=== PATIENT | female | born 1965 | race Caucasian/White ===

== ENCOUNTER 2019-06-11 13:26 | Emergency (ER) | payer OTHER ==
[2019-06-11] MEDS ORDERED: HYDROCODONE/APAP 7.5/325 MG TAB ONE (13:43)
--- NOTE | 2019-06-11 14:20 | RAD REPORT ---
EXAM DESCRIPTION: RAD - Knee Right 3 View - 06/11/2019 2:08 pm CLINICAL HISTORY: Right knee pain status post injury FINDINGS: No fracture or dislocation is seen.
--- NOTE | 2019-06-11 14:41 | RAD REPORT ---
EXAM DESCRIPTION: Kenny Stevenson Cont06/11/2019 2:27 pm CLINICAL HISTORY: Right knee pain status post injury COMPARISON: X-ray June 11, 2019 TECHNIQUE: Computed axial tomography of the right knee was obtained with coronal and sagittal recons truction. All CT scans are performed using dose optimization technique as appropriate and may include automated exposure control or mA/KV adjustment according to patient size. FINDINGS: No fracture or dislocation Minimal joint effusion Muscles appear normal size and density Mild soft tissue swelling anteriorly IMPRESSION: No fracture seen If patient has clinical symptoms to suggest a meniscal or ligamentous injury then MRI would be recomm ended
[2019-06-11] MEDS ORDERED: ONDANSETRON 4 MG/2 ML VIAL ONE (15:21)
[2019-06-11] MEDS ORDERED: MORPHINE 4 MG/ML SYR ONE (15:21)
--- NOTE | 2019-06-11 17:01 | RAD REPORT ---
EXAM DESCRIPTION: MRI - Knee Right Wo Cont - 06/11/2019 4:28 pm CLINICAL HISTORY: Knee pain, twisting injury, pain out of proportion to imaging findings COMPARISON: CT right knee same date, right knee plain films same date TECHNIQUE: Sagittal and axial PD and T2 fat sat sequences obtained. Coronal T2 fat sat and T1 sequen lyly also obtained. FINDINGS: Patella tendon and quadriceps tendon show no significant finding. Patella chondral edema a nd thinning in the lateral facet with cortical thinning and subcortical degenerative cystic change in the lateral facet. No full-thickness osteochondral defects seen. There is medial facet chondral imer a. Medial and lateral support structures are intact. Edema signal is present in the medial aspect of the Hoffa fat pad. Mild femoral chondral edema. No significant chondromalacia of the femoral condyles noted. No cortical disruption or full thickness osteochondral defect. The anterior cruciate, posterior cruciate trauma medial collateral and lateral collateral ligaments a re intact. Small joint effusion present. No intra-articular loose body. No tear of the lateral meniscus identified. Signal abnormality is present in the posterior horn media l meniscus without extension to superior or inferior articular surface. This could be intrasubstance tear or degenerative signal. No posterior capsular margin tear confirmed. No mass or abnormal fluid collection in the popliteal fossa. IMPRESSION: No occult fracture. No femur or tibia bone bruising. Mild femoral chondral edema changes are present without significant chondromalacia otherwise noted. Significant chondromalacia of the patella with thinning of the lateral facet chondral tissue, lateral facet cortical thinning and subcortical degenerative cystic change. No full thickness free osteochon dral defect. Medial facet chondral edema present. There is edema in the medial Hoffa fat pad at the i nferior margin of the patella. No ligament tear. Degenerative signal posterior horn medial meniscus without tear extending to an articular surface.
--- NOTE | 2019-06-11 17:32 | EDPHYS ---
Physician Documentation [facility] Name: Erika Ardon Age: 53 yrs Sex: Female : 1965 Arrival Date: 06/11/2019 Time: 13:28 Bed 19 Private MD: ED Physician Last Linton HPI: 06/11 16:55 This 53 yrs old Female presents to ER via Wheelchair with complaints of Knee kdr Pain. 16:55 The patient presents with decreased range of motion, pain, that is acute, tenderness. kdr The complaints affect the lateral aspect of right knee and right knee. Context: The problem was sustained at work, resulted from Soon after standing and then twisting she felt discomfort in her knee and then was not able to bear luz maria or straighten knee., the patient is able to ambulate. Historical: - Allergies: 13:36 PENICILLINS; sv - PMHx: 13:36 None; sv - PSHx: 13:36 None; sv - Immunization history:: Adult Immunizations Flu vaccine is not up to date. - Social history:: Smoking status: . - Ebola Screening: : Patient denies travel to an Ebola-affected area in the 21 days before illness onset. ROS: 17:07 Constitutional: Negative for fever, chills, and weight loss. kdr 17:07 MS/extremity: Positive for injury or acute deformity, decreased range of motion, pain, tenderness, of the lateral aspect of right knee and right knee. Exam: 17:06 Constitutional: This is a well developed, well nourished patient who is awake, alert, kdr and in no acute distress. Head/Face: Normocephalic, atraumatic. Eyes: Pupils equal round and reactive to light, extra-ocular motions intact. Lids and lashes normal. Conjunctiva and sclera are non-icteric and not injected. Cornea within normal limits. Periorbital areas with no swelling, redness, or edema. 17:06 Musculoskeletal/extremity: Extremities: grossly normal except: noted in the lateral aspect of right knee and right knee: decreased ROM, pain, tenderness, Minimal swelling, N/v intact distal to the knee. Vital Signs: 13:36 BP 135 / 74; Pulse 75; Resp 16; Temp 98.5; Pulse Ox 97% ; Weight 65.77 kg; Height 5 ft. sv 5 in. (165.10 cm); Pain 8/10; 14:34 BP 125 / 73; Pulse 67; Resp 17; Pulse Ox 99% on R/A; mh5 15:40 BP 120 / 80; Pulse 67; Resp 15; Pulse Ox 99% on R/A; mh5 16:35 BP 121 / 90; Pulse 61; Resp 15; Pulse Ox 98% on R/A; mh5 13:36 Body Mass Index 24.13 (65.77 kg, 165.10 cm) sv MDM: 17:31 Patient medically screened. kdr 17:34 Data reviewed: vital signs, nurses notes, lab test result(s), radiologic studies. kdr Counseling: I had a detailed discussion with the patient and/or guardian regarding: the historical points, exam findings, and any diagnostic results supporting the discharge/admit diagnosis, lab results, radiology results, the need for outpatient follow up. 06/11 13:44 Order name: Knee Right 3 View XRAY; Complete Time: 15:12 kdr 06/11 14:15 Order name: Knee Right Wo Cont; Complete Time: 15:12 EDMS 06/11 15:22 Order name: Knee Right Wo Cont; Complete Time: 17:07 EDMS 06/11 17:29 Order name: Minor wrap-joint: Right knee; Complete Time: 17:51 kdr 06/11 17:29 Order name: Crutches; Complete Time: 17:51 kdr Administered Medications: 13:50 Drug: [place] (7.5 mg-325 mg) 1 tabs Route: PO; em 15:03 Follow up: Response: No adverse reaction; Pain is decreased; RASS: Alert and Calm (0) em 15:41 Drug: Zofran 4 mg Route: IVP; Site: right antecubital; ss 16:30 Follow up: Response: No adverse reaction em 15:46 Not Given (Only [address] linton notified. ): morphine 4 mg IVP once; RASS on ss ADMIN: Combtv4, Very Agttd3, Agttd2, Rstlss1, AlertClm0, Drwsy-1, Lt Sdtn-2, Mod Sdtn-3, Dp Sdtn-4, UnArsble-5 15:46 Drug: morphine 2 mg Route: IVP; Site: right antecubital; ss 16:30 Follow up: Response: No adverse reaction; Pain is decreased; RASS: Alert and Calm (0) em 17:58 Drug: TORadol - Ketorolac 15 mg Route: IVP; Site: right antecubital; ss 18:09 Follow up: Response: No adverse reaction; Medication administered at discharge. ss 18:01 Drug: SOLU-Medrol 125 mg Route: IVP; Site: right antecubital; ss 18:08 Follow up: Response: No adverse reaction; Medication administered at discharge. Disposition: 06/11/19 17:31 Discharged to Home. Impression: Pain in right knee, Degenerative changes to right knee. - Condition is Stable. - Discharge Instructions: Musculoskeletal Pain, Knee Pain, [id number], Joint Pain, [id number], Heat Therapy. - Prescriptions for Ibuprofen 600 mg Oral Tablet - take 1 tablet by ORAL route every 6 hours As needed take with food; 15 tablet. Tylenol- Codeine #4 300-60 mg Oral Tablet - take 1 tablet by ORAL route every 6 hours As needed; 6 tablet. Medrol (Omari) 4 mg Oral Tablets, Dose Pack - take 1 tablet by ORAL route as directed - follow package instructions; 1 packet. - Medication Reconciliation Form, Thank You Letter, Prescription Opioid Use form. - Follow up: Private Physician; When: 2 - 3 days; Reason: If symptoms return, Further diagnostic work-up, Recheck today's complaints, Continuance of care, Re-evaluation by your physician. Follow up: Etienne Eddy MD; When: 2 - 3 days; Reason: If symptoms return, Further diagnostic work-up, Recheck today's complaints, Continuance of care, Re-evaluation by your physician. - Problem is new. - Symptoms have improved. Signatures: Dispatcher [employer] [facility] Erika Garland, RN RN Last Mendiola MD MD kdr Munoz, Edgar, MISSILE FACILITIES REPAIRER MISSILE FACILITIES REPAIRER Laila Blanco RN RN ss Wise, Tara, RN RN tw2 Corrections: (The following items were deleted from the chart) 14:14 14:03 CT RIGHT KNEE WO CONTRAST ordered. [facility] 18:11 17:31 06/11/2019 17:31 Discharged to Home. Impression: Pain in right knee; Degenerative em changes to right knee. Condition is Stable. Forms are Medication Reconciliation Form, Thank You Letter, Antibiotic Education, Prescription Opioid Use. Follow up: Private Physician; When: 2 - 3 days; Reason: If symptoms return, Further diagnostic work-up, Recheck today's complaints, Continuance of care, Re-evaluation by your physician. Follow up: Dr. Etienne Eddy; When: 2 - 3 days; Reason: If symptoms return, Further diagnostic work-up, Recheck today's complaints, Continuance of care, Re-evaluation by your physician. Problem is new. Symptoms have improved. kdr
--- NOTE | 2019-06-11 17:32 | ER ---
Nurse's Notes [facility] Name: Erika Ardon Age: 53 yrs Sex: Female : 1965 Arrival Date: 06/11/2019 Time: 13:28 Bed 19 Private MD: Diagnosis: Pain in right knee;Degenerative changes to right knee Presentation: 06/11 13:34 Risk Assessment: Do you want to hurt yourself or someone else? Patient reports no tw2 desire to harm self or others. Care prior to arrival: None. 13:34 Presenting complaint: Patient states: right knee pain after twisting wrong but has been sv having ongoing right knee problems. Transition of care: patient was not received from another setting of care. Onset of symptoms was June 11, 2019. Risk Assessment: Do you want to hurt yourself or someone else? Patient reports no desire to harm self or others. Initial Sepsis Screen: Does the patient meet any 2 criteria? No. Patient's initial sepsis screen is negative. Does the patient have a suspected source of infection? No. Patient's initial sepsis screen is negative. Care prior to arrival: None. 13:34 Method Of Arrival: Wheelchair sv 13:34 Acuity: MARITA 4 sv Historical: - Allergies: 13:36 PENICILLINS; sv - PMHx: 13:36 None; sv - PSHx: 13:36 None; sv - Immunization history:: Adult Immunizations Flu vaccine is not up to date. - Social history:: Smoking status: . - Ebola Screening: : Patient denies travel to an Ebola-affected area in the 21 days before illness onset. Screenin:34 Abuse screen: Denies threats or abuse. Nutritional screening: No deficits noted. tw2 Tuberculosis screening: No symptoms or risk factors identified. Fall Risk None identified. Assessment: 14:55 Reassessment: Patient appears in no apparent distress at this time. Patient and/or em family updated on plan of care and expected duration. Pain level reassessed. Patient is alert, oriented x 3, equal unlabored respirations, skin warm/dry/pink. reports pain is better, resting calmly with eyes closed. 15:30 General: Appears uncomfortable, Behavior is calm, cooperative. Neuro: Level of ss Consciousness is awake, alert, obeys commands, Oriented to person, place, time, situation. Cardiovascular:. Respiratory: Airway is patent Respiratory effort is even, unlabored, Respiratory pattern is regular, symmetrical. EENT: Oral mucosa is moist. Derm: Skin is intact, is healthy with good turgor, Skin is pink, warm \T\ dry. normal. Musculoskeletal: Swelling absent. 15:49 Reassessment: Pt to MRI VIA wheelchair at this time. ss 16:30 Reassessment: Patient appears in no apparent distress at this time. Patient and/or em family updated on plan of care and expected duration. Pain level reassessed. Patient is alert, oriented x 3, equal unlabored respirations, skin warm/dry/pink. Patient states feeling better. 17:30 Reassessment: Patient appears in no apparent distress at this time. Patient and/or em family updated on plan of care and expected duration. Pain level reassessed. Patient is alert, oriented x 3, equal unlabored respirations, skin warm/dry/pink. Patient states feeling better. Vital Signs: 13:36 BP 135 / 74; Pulse 75; Resp 16; Temp 98.5; Pulse Ox 97% ; Weight 65.77 kg; Height 5 ft. sv 5 in. (165.10 cm); Pain 8/10; 14:34 BP 125 / 73; Pulse 67; Resp 17; Pulse Ox 99% on R/A; mh5 15:40 BP 120 / 80; Pulse 67; Resp 15; Pulse Ox 99% on R/A; mh5 16:35 BP 121 / 90; Pulse 61; Resp 15; Pulse Ox 98% on R/A; mh5 13:36 Body Mass Index 24.13 (65.77 kg, 165.10 cm) sv ED Course: 13:28 Patient arrived in ED. mr 13:29 Last Linton MD is Attending Physician. kdr 13:34 Bed in low position. Call light in reach. tw2 13:34 Arm band placed on. tw2 13:35 Triage completed. sv 13:39 Gutierrez Isidro LVN is Primary Nurse. em 14:09 Knee Right 3 View XRAY In Process Unspecified. EDMS 14:27 Knee Right Wo Cont In Process Unspecified. EDMS 15:40 Inserted saline lock: 22 gauge in right antecubital area, using aseptic technique. ss 15:56 Knee Right Wo Cont In Process Unspecified. EDMS 17:30 Etienne Eddy MD is Referral Physician. kdr 17:50 Crutch training done. Minor wrap to right knee. [facility] 18:08 No provider procedures requiring assistance completed. IV discontinued, intact, em bleeding controlled, No redness/swelling at site. Pressure dressing applied. Administered Medications: 13:50 Drug: [place] (7.5 mg-325 mg) 1 tabs Route: PO; em 15:03 Follow up: Response: No adverse reaction; Pain is decreased; RASS: Alert and Calm (0) em 15:41 Drug: Zofran 4 mg Route: IVP; Site: right antecubital; ss 16:30 Follow up: Response: No adverse reaction em 15:46 Not Given (Only [address] linton notified. ): morphine 4 mg IVP once; RASS on ss ADMIN: Combtv4, Very Agttd3, Agttd2, Rstlss1, AlertClm0, Drwsy-1, Lt Sdtn-2, Mod Sdtn-3, Dp Sdtn-4, UnArsble-5 15:46 Drug: morphine 2 mg Route: IVP; Site: right antecubital; ss 16:30 Follow up: Response: No adverse reaction; Pain is decreased; RASS: Alert and Calm (0) em 17:58 Drug: TORadol - Ketorolac 15 mg Route: IVP; Site: right antecubital; ss 18:09 Follow up: Response: No adverse reaction; Medication administered at discharge. ss 18:01 Drug: SOLU-Medrol 125 mg Route: IVP; Site: right antecubital; ss 18:08 Follow up: Response: No adverse reaction; Medication administered at discharge. Outcome: 17:31 Discharge ordered by . kdr 18:09 Discharged to home with crutches, with family. em 18:09 Condition: good 18:09 Discharge instructions given to patient, family, Instructed on discharge instructions, follow up and referral plans. medication usage, crutch walking, Demonstrated understanding of instructions, follow-up care, medications, crutch walking, Prescriptions given X 3. 18:11 Patient left the ED. em Signatures: Dispatcher [employer] Erika Sharp RN RN sv Rittger, Kevin, MD MD kdr Rivera, Mary mr Munoz, Edgar, LVN CYCLE DIRECTOR Laila Blanco, RN RN ss Kiesha Vazquez, RN RN [address] [place] [id number]
[2019-06-11] MEDS ORDERED: METHYLPREDNISOLONE 125 MG INJ ONE (17:36)
[2019-06-11] MEDS ORDERED: KETOROLAC 30 MG/ML INJ ONE (17:37)
[2019-06-11 18:25] VITALS: TEMP 98.5
[2019-06-11 18:31] VITALS: BP 121/90; O2SAT 98
== END 2019-06-11 18:11 | disposition home or self-care (01) ==
LOC: ER 13:26
DX: M25.9 Joint disorder, unspecified (principal); Z88.0 Allergy status to penicillin
CPT/HCPCS: 73700; 73562; 73721; 96375; 96374; 99284; J2930; J2405

== ENCOUNTER 2020-12-26 06:41 | Day surgery (SDC) | payer BC ==
[2020-12-20 11:18] LABS: Absolute Lymphocytes (CBC) 1.7 K/uL (0.7-4.9); Basophils % 0.3 % (0-1.3); Hematocrit 37.6 % (36.0-45.0); Lymphocytes % 25.4 % (15.3-44.8); MPV 8.8 fL (7.6-11.3); RBC Red Blood Cell Count 4.78 M/uL (3.86-4.86)
[2020-12-20 11:32] LABS: Urine Appearance CLEAR (Clear); Urine Bilirubin NEGATIVE (Negative); Urine Blood NEGATIVE (Negative); Urine Color YELLOW (Yellow); Urine Glucose NEGATIVE (Negative); Urine Protein NEGATIVE (Negative); Urine Specific Gravity 1.015 (1.005-1.030); Urine Urobilinogen 0.2 mg/dL (0.2-1.0)
[2020-12-20 11:34] LABS: Urine Microscopic Reflex ORDER UMIC
[2020-12-20 12:11] LABS: Urine Bacteria 20-50 /HPF (<20); Urine RBC NONE SEEN /HPF (NONE SEEN)
[2020-12-26] MEDS ORDERED: Ringers Lactate 1,000 ML IV ONE (07:14)
[2020-12-26] MEDS ORDERED: CEFAZOLIN/SWI 2gm 2 GM/20 ML SYR ONE (07:25)
[2020-12-26] MEDS ORDERED: SCOPOLAMINE HYDROBROMIDE PATCH TD ONE (07:25)
[2020-12-26] MEDS ORDERED: ROCURONIUM 50 MG/5 ML VIAL IV ONE (07:33)
[2020-12-26] MEDS ORDERED: FENTANYL CITR 250 MCG/5 ML ONE (07:33)
[2020-12-26] MEDS ORDERED: propofoL 200 MG/20 ML VIAL IV ONE (07:33)
[2020-12-26] MEDS ORDERED: KETAMINE HCL 500 MG/5 ML VIAL ONE (07:33)
[2020-12-26] MEDS ORDERED: ONDANSETRON 4 MG/2 ML VIAL ONE (07:33)
[2020-12-26] MEDS ORDERED: LIDOCAINE 2% MPF 5 ML VIAL ONE (07:33)
[2020-12-26] MEDS ORDERED: dexAMETHasone 10 MG/ML VIAL ONE (07:33)
[2020-12-26] MEDS ORDERED: MIDAZOLAM HCL 2 MG/2 ML INJ ONE (07:33)
[2020-12-26] MEDS ORDERED: NS 0.9% VIAL 10 ML ONE (07:34)
[2020-12-26] MEDS: BUPIVACAINE 0.25% PF 30 ML VIAL ONE ×2 (07:46→08:15)
[2020-12-26] MEDS: Ringers Lactate 1,000 ML IV ONE ×2 (08:49→09:10)
[2020-12-26] MEDS ORDERED: KETOROLAC 30 MG/ML INJ ONE (10:36)
[2020-12-26] MEDS ORDERED: MORPHINE 10 MG/ML VIAL ONE (10:58)
[2020-12-26] MEDS: HYDROMORPHONE HCL 1 MG/ML INJ ONE ×2 (11:56→12:04)
[2020-12-26] MEDS ORDERED: HYDROCODONE/APAP 5/325 MG TAB ONE (13:07)
[2020-12-26 14:09] VITALS: BP 131/63; TEMP 97.4; O2SAT 100
--- NOTE | 2020-12-26 20:47 | OP ---
Date of Procedure: 12/26/2020 Surgeon: Janell Mcbride MD Educational Psychology Teacher: Marleen Houser. Preoperative Diagnoses: Abnormal uterine bleeding from leiomyomata and (menorrhagia), right lower qu adrant pain. Postoperative Diagnoses: Abnormal uterine bleeding from leiomyomata and (menorrhagia), right lower q uadrant pain and endometriosis. Procedures Performed: 1.Total laparoscopic hysterectomy with bilateral salpingo-oophorectomy. 2.Vaginal morcellation. 3.Endometriosis excision. 4.Left ureterolysis and cystoscopy. Anesthesia: General endotracheal. Ebl: 50. Specimens: Uterus, bilateral tubes and ovaries, all attached to the uterine specimen. No separate p ieces of the uterus present. Findings: The ovaries and tubes were unremarkable, fibroid largest in the posterior wall, intramural and subserosal. Other small several leiomyomata. Endometriosis in the distal right uterosacral imm ediately lateral to the insertion at the top of the vaginal apex and on the left side, left lateral w all all the way from below the level of the infundibulopelvic ligament extending on the posterior dexter f of the peritoneum all the way to the left uterosacral. The ureter had to be and dissecte d laterally to protect it and all the endometriosis was excised and the specimen was handed out for p athology. Closure of the vaginal cuff was performed with 0 Vicryl, 2 angled sutures and 3 figures-of -eight in the middle. Four ports were placed, two 1 cm ports and two 5 mm ports. Complications: None. Drains: None. Condition: The patient's condition stable on cystoscopy. Both ureteric orifices were well visualize d, and there were strong jets of urine from both of them. Other Specimens: Endometriosis of the left lateral wall. The right distal uterosacral endo was incl uded with the uterine specimen. Indications: The patient is a 55-year-old female known to the practice for many years, progressively having increasing bleeding, known to have leiomyomata. Endometrial sampling 6 months ago showed no atypia or malignancy. She did have right lower quadrant pain and her pain and dysmenorrhea also were getting worse with time progressively. She does have perimenopausal symptoms. Despite this, the bl eeding and the pain have become intolerable. Discussed about different options of conservative treat ment including an IUD, endometrial ablation with endometriosis excision laparoscopic. The patient wa nted to wait and after observing for many years, she decided to proceed with a hysterectomy. I conse nted her for a salpingo-oophorectomy as well and endometriosis that it would be done. Aft er signing the appropriate consent and explaining the risks including bleeding, infection, injury to the bowel, bladder, and ureters. She was reconsented here this morning and she was taken back to the OR. Her was present by her side, and the questions and answers were done to their satisfact ion including explanation of recovery and expected postoperative recovery related events. Procedure In Detail: After she was taken back to OR, placed in supine fashion on operative table, ge neral anesthesia was given. Placed in dorsal lithotomy position. 2 g of Ancef were given. SCDs wer e placed. Abdomen, vulva, vagina, and perineum were prepped and draped in a sterile fashion after sh e was Nestor jeong. Crespo was placed to drain the bladder and a large VCare was introdu warren into the uterus and fixed in place. The 10 mm infraumbilical incision was made with a scalpel using the open laparoscopy technique. Fasc ia was incised under direct vision. Peritoneum was entered sharply. 0 Vicryl sutures tagged on each side of the fascia and Alexandra was introduced. Site of entry was checked, unremarkable. The patient was placed in Trendelenburg after taking a good look at the upper abdominal surfaces, which did not have any endometriosis. Liver and gallbladder were all visualized and unremarkable. The patient was placed in Trendelenburg. Then visualization was done. The uterus was enlarged with a posterior lar ge leiomyoma. Normal ovaries and tubes. Both ureters were attempted to be traced, but the right 1 w as very obvious in the pelvic brim to the ureteric tunnel. There was no displacement, and on the lef t side the ureter could be seen in its course, however, the proximal half was concealed by the adhesi ons of the sigmoid colon. The distal half was visualized. However, there was endometriosis and scar tissue here, so plan was to remove that and do the hysterectomy. A 10 suprapubic, two 5 in right and left lower quadrant ports were placed under direct vision. 0.25% Marcaine was injected at both entry of the skin and fascia. The lateral peritoneum immediately parallel to the IP ligament was opened up, and this was dissected all the way to the level of the broad ligament. Then, the medial leaf of the broad ligament was open ed up isolating the infundibulopelvic ligament after visualizing the location of ureter. Before this was done, the sigmoid colon adhesions were taken down sharply with the help of scissors, and the sig moid colon from the lateral wall as well with the help of scissors. Once IP was well exposed and the pedicle was obtained and this was cauterized and cut with the help of the LigaSure. The peritoneum and the posterior leaves were taken down posteriorly past the round ligament to the uterosacral attac hment. Once this was done, there were implants of the peritoneum lateral to it. Then, anterior broad ligament was opened up. Then round ligament was taken down with the help of the LigaSure. The anterior broad ligament was opened up all the way to go onto the opposite side at the level of the right round ligament. Then, the bladder was dissected off the anterior vaginal wall ca refully. Then, there were pockets made in the medial aspect of the vessels, were taken down with the vessels. At this point, attention was directed to the opposite side. Peritoneum was attempted to b e opened lateral to the ovary. However, here there was some bleeding from the IP ligament itself, so the distance between the ureter and this was great, and so the IP ligament was taken down with the h elp of the LigaSure. Then, the anterior broad ligament was opened up. The ovary was dissected off f rom the lateral wall. Then round ligament was taken down and the anterior broad ligament connected t o the opposite side. The peritoneum was taken down to the level of distal uterosacral. Here the end ometriotic implant was included, scraped off from the sidewall between the ureteric tunnel and the ut erosacral and included with the uterine specimen. Then anteriorly the broad ligament was connected and the dissection of the anterior wall of the vagin a on the right was done and the bladder was peeled off to expose at least 2 cm of the vaginal apex. Once this was done in a fashion, the pocket was made medial to the vessels. The vessels w ere taken down with the basket tip bipolar and the LigaSure. Both the uterine vessels were taken vira n. There was some bleeding from the specimen side. Control of vasculature was taken to the opposite side and then vessels were attempted to be dissected. However, there was small amount of bleeding f rom these and there was scar tissue right here, especially with endometriosis still stuck on the late ral aspect. It was difficult to do this. So I decided to perform a left ureterolysis in order for m e to isolate the ureter and decrease the incidences of trauma. The proximal ureter was opened up as the broad ligament posteriorly was opened up all ready. Then, the ureter was found. Ureter was diss ected down going down all the way to the level of the ureteric tunnel underneath the uterine artery. Once I was here, the area between the uterine artery and the ureter was taken down carefully. Then, the uterine artery at the origin from the internal iliac was isolated and coagulated with 2 clips. 5 mm clips were placed on the vessels to secure the uterine artery, and once this was done laterally, then came onto the medial aspect, took down the vessels close to the VCare cup and cardinal ligament s were also taken down, then circumferential colpotomy was performed with monopolar hook blade. Card inals on the other side were taken down with the LigaSure as well, and then specimen attempted to be pulled out through the vagina. It was difficult to retrieve the specimen through the small vaginal opening. Therefore, plan was to morcellate. Sheikh speculum, two small Deavers were used for retraction and exposure of the vaginal specimen. Then , a 10 blade on a long handle was used to incise the uterus and some part of the fibroids, and this a llowed the specimen to pop out through the vaginal apex. Once this was done, this was removed and patricia nded out for permanent pathology. Tubes and ovaries were attached to the specimen. Then, after cleaning up the bottom, changing the gloves and gown, I went back up to the laparoscopic part, and here thorough irrigation and suction of the vaginal cuff were done, and this was closed wit h the help of a 0 Vicryl in a simple fashion on both angles and making sure that the entir e thickness of the vaginal cuff was included. Once the hemostasis was secured and the vaginal cuff w as closed, there was excellent support as well. Then I went on to thoroughly irrigate and suction th e entire pelvic cavity. There was excellent hemostasis at all pedicles. Ureter appeared to be witho ut any electrical, mechanical or thermal injury to them, specially on the left. Coming down to the cystoscopy, Crespo was removed. Cystoscopy was performed a 17-Malay sheath and 30 -degree lens and normal saline. This was to visualize the ureters well. Once they were well visuali zed, there was excellent jets of urine from both. No evidence of any need for apical support. Coming back up top after changing the gloves, the trocars were removed under direct vision at all sit es and injected with 0.25% Marcaine at the fascia and the skin. Umbilical incision was closed with t he help of the 0 Vicryl sutures tied to each other and injected with Marcaine as well. Simple 0 Vicr yl stitch was placed at the fascia on the suprapubic incision. All skin incisions were closed with i nterrupted 4-0 Vicryl sutures. The vagina was cleaned out. Vaginal sponge was removed. Instrument, needle, and sponge counts were correct at the end of the case. The patient did not leave with the Kori feldman from the operating room, and her was given all the details of her procedure. She will a lso have a discussion on her first postop visit. Questions were answered to their satisfaction and t he prescriptions have been called. KIKI/JEFFERSON Voice ID: [id number] Report ID: [id number]
== END 2020-12-26 14:00 | disposition home or self-care (01) ==
LOC: OR 06:41
PROVIDERS: ATTEND Obstetrics & Gynecology
PROC: 0UT24ZZ Resection of Bilateral Ovaries, Percutaneous Endoscopic Approach (ICD-10-PCS; 2020-12-26)
PROC: 0UT74ZZ Resection of Bilateral Fallopian Tubes, Percutaneous Endoscopic Approach (ICD-10-PCS; 2020-12-26)
PROC: 0DBW4ZZ Excision of Peritoneum, Percutaneous Endoscopic Approach (ICD-10-PCS; 2020-12-26)
PROC: 0UT94ZZ Resection of Uterus, Percutaneous Endoscopic Approach (ICD-10-PCS; principal; 2020-12-26 07:30)
DX: D25.9 Leiomyoma of uterus, unspecified (principal); N92.0 Excessive and frequent menstruation with regular cycle; R10.31 Right lower quadrant pain; N88.8 Other specified noninflammatory disorders of cervix uteri; N84.0 Polyp of corpus uteri; N83.201 Unspecified ovarian cyst, right side; N94.89 Other specified conditions associated with female genital organs and menstrual cycle; Z20.822 Contact with and (suspected) exposure to COVID-19
CPT/HCPCS: 87088; 85025; 87086; 36415; 86900; 86850; 81025; 86901; 88305; 88307; 58571; 58662; U0002; J2704; J2250; J3010; J1100; J1170; J0690; J7120 ×2; J2405; 81003; 81015

== ENCOUNTER 2021-09-26 12:32 | Inpatient (IN) | payer BC ==
--- OUTSIDE RECORDS SUMMARY | 2021-09-26 12:34 | XMS REPORT | Continuity of Care Document ---
:1965 Author Organization [facility] t Address [address] [place] [address] Care Team Providers Name Role Phone Jerome VIRAMONTES Primary Care Physician LAMONT, A Attending Clinician Unavailable Therapy, Covid Infusion Attending Clinician Unavailable Lamont VIRAMONTES, A Attending Clinician Doctor Unassigned, Name Attending Clinician Unavailable Payers Payer Name Policy Type Policy Number Effective Date Expiration Date S kassandra [facility] [id number] 2020 00:00:00 Problems This patient has no known problems. Allergies, Adverse Reactions, Alerts Allergy Allergy Status Severity Reaction(s) Onset Inactive Treating Comm ents Source Name Type Date Date Clinician PENICILL Drug Active Rash Univers INS Class 8-28 ity of 00:[place]: [place] [facility] Penicill Propensi Active Rash Univer s ins ty to 8-28 ity of adverse 00:00: [place] reaction 00 Medical s Branch Penicill Propensi Active Rash Method i in G ty to [address] adverse 00:00: Hospita reaction 00 l s to drug PCN Adverse Active Info Not [facility] Reaction Available [facility] NO KNOWN Drug Active Univers ALLERGIE Class ity of [facility] Family History Family Member Diagnosis Comments Start Date Stop Date Source Maternal grandfather Heart disease [facility] Maternal grandmother Cancer [facility] Natural mother [facility] Natural mother Hyperlipidemia [facility] Natural mother Hypertension [facility] Natural mother Varicose Veins [facility] Paternal grandmother Cancer [facility] Social History Social Habit Start Date Stop Date Quantity Comments Source History SDOH [facility] Alcohol Frequency Hospita l History SDOH [facility] Alcohol Std Hospital Drinks History SDOH [facility] Alcohol Binge Hospital Exposure to Not sure University of SARS-CoV-2 [facility] (event) Branch Alcohol intake 2018-08-11 2018-08-11 .29 /d [facility] 00:00:00 00:00:00 Hospital Alcohol Comment 2017-12-25 2017-12-25 twice a year [facility] 00:[facility]00 Hospital Tobacco use and 2017-11-12 2017-11-12 Smokeless tobacco [facility] exposure 00:00:00 00:00:00 non-user Hospital Sex Assigned At [birth year] [facility] 00:00:00 00:00:00 Hospital Smoking Status Start Date Stop Date Source Unknown if ever smoked [facility] Never smoked tobacco [facility] Medications Ordered Filled Start Stop Current Ordering Indication Dosage Frequency Signature Comments Components Source Medication Medication Date Date Medication? Clinician (SIG) Name Name Mupirocin Mupirocin Yes Etienne [address] [facility] 10-31 Eddy applicatio Hugo - 00:00: n to Memoria 00 affected l area Outpati ent Clinics multivitami Yes 1{tbl} QD Take 1 Me thodi n with 6-[address] minerals 13:11: mouth Hospita tablet 07 daily. l Lactobac Yes 1{tbl} QD Take 1 Metho di no.41/Bifid 6-[address] obact no.7 13:11: mouth Hospit a (PROBIOTIC- 07 daily. l 10 ORAL) LORATADINE Yes 1{tbl} QD Take 1 Met [facility] ORAL 6-[address] 13:11: mouth Hospita 07 daily. l aspirin Yes 81mg QD Take 81 mg Meth aleena (ECOTRIN) 6-[address] 81 MG 13:11: daily. Hospita enteric 07 l coated tablet ALPRAZolam Yes TAKE 1 Metho di (XANAX) 1 3-[address] MG tablet 00:00: MOUTH ONCE Ho spita 00 A DAY l NEEDED Paxil Paxil Yes Etienne not [facility] defined [facility] Paroxetine Paroxetine Yes Etienne TAKE [address] [facility] HCl HCl Eddy TABLET BY [facility] EVERY l MORNING Outpat[facility] ent Clinics Baby Baby Yes Etienne not [facility] Aspirin Aspirin [facility] defined [facility] Aleve Aleve Yes Etienne not [facility] Ibuprofen Ibuprofen Yes Etienne not [facility] Claritin Claritin Yes Etienne not [facility] Immunizations Ordered Immunization Filled Immunization Date Status Commen ts Source Name Name Influenza, 2017-04-20 Completed [facility] Unspecified 00:00:00 Hospital Vital Signs Vital Name Observation Time Observation Value Comments Source Systolic blood 2021-03-17 15:20:00 132 mm[Hg] Univer sity of pressure [facility] Diastolic blood 2021-03-17 15:20:00 70 mm[Hg] Unive rsity of [facility] Heart rate 2021-03-17 15:20:00 90 /min [facility] Body temperature 2021-03-17 15:20:00 36.44 [facility] Respiratory rate 2021-03-17 15:20:00 18 /min [facility] Oxygen saturation in 2021-03-17 15:20:00 99 /min [facility] Arterial blood by [facility] Pulse oximetry Branch Body height 2021-03-17 14:52:00 165.1 cm [facility] Body weight 2021-03-17 14:52:00 84.369 kg [facility] BMI 2021-03-17 14:52:00 30.95 kg/m2 [facility] Procedures Procedure Date / Time Performed Performing Clinician Franco mcfarland [id number] CONSENT 2021-03-17 05:01:00 Doctor Unassigned, No Unive [facility] Plan of Care Planned Activity Planned Date Details Comments Source Future Scheduled 2021-05-30 COVID-19 VACCINE (1) [facility] Test 05:47:24 [code = COVID-19 VACCINE (1)] Future Scheduled 2021-05-30 Hepatitis C screening [facility] Test 05:47:24 (procedure) [code = 710084291] Future Scheduled 2021-05-30 [facility]ening for [facility] Test 05:47:24 malignant neoplasm of cervix (procedure) [code = 718384267] Future Scheduled 2021-05-30 BREAST CANCER [facility] Test 05:47:24 SCREENING [code = BREAST CANCER SCREENING] Future Scheduled 2021-05-30 COLONOSCOPY SCREENING [facility] Test 05:47:24 [code = COLONOSCOPY SCREENING] Future Scheduled 2021-05-30 SHINGLES VACCINES [facility] Test 05:47:24 (#1) [code = SHINGLES VACCINES (#1)] Future Scheduled 2021-05-30 INFLUENZA VACCINE [facility] Test 05:47:24 [code = INFLUENZA VACCINE] Encounters Start End Encounter Admission Attending Care Care Encounter Source Date/Time Date/Time Type Type Clinicians Facility Department ID 2021-08-[address] [facility] 12:28:44 [id number] [facility] 2021-08-[address] [facility] 12[facility]24:17 [id number] [facility] 2021-08-[address] [facility] 12:17:23 [id number] [facility] 2021-03-17 2021-03-17 Outpatient Jasmin MIGUEL [facility] [id number] Univers 09:00:00 09:00:00 VICKEY pierce [facility] 2021-03-17 2021-03-17 Nurse Therapy, Adc Covid Infusion [facility] [id number] Univers 07:48:14 08:48:14 Visit Vickey Miguel [id number] cher [facility] [id number] [place] [id number] [place] [address] Branch 2021-03-17 2021-03-17 Orders Doctor LINARES [id number] Univers 00:00:00 00:00:00 Only Unassigned, ÁNGELA [id number] [facility] [facility] [id number] [place] as [id number] [place] [id number] Branch 2020-12-21 2020-12-21 Outpatient [facility] [id number] [facility] 2020-10-31 2020-10-31 Outpatient [facility] [id number] [facility] 2020-08-31 2020-08-31 Outpatient [facility] [id number] [facility] 2020-08-24 2020-08-24 Outpatient [facility] [id number] [facility] 2020-08-14 2020-08-14 Outpatient [facility] [id number] [facility] 2020-07-25 2020-07-25 Outpatient [facility] [id number] [facility] 2020-07-24 2020-07-24 Outpatient [facility] [id number] [facility] 2020-02-18 2020-02-18 Outpatient [facility] [id number] [facility] 2020-02-07 2020-02-07 [facility] [id number] 15:00:00 15:00:00 [facility] Clin[facility] 2019-06-15 2019-06-15 [facility] [id number] [address] 08:30:00 08:30:00 [facility] Clinics Results This patient has no known results.
[2021-09-26 13:03] LABS: Absolute Lymphocytes (CBC) 1.5 K/uL (0.7-4.9); Hematocrit 39.3 % (36.0-45.0); Lymphocytes % 28.8 % (15.3-44.8); MPV 9.3 fL (7.6-11.3); RBC Red Blood Cell Count 4.53 M/uL (3.86-4.86)
[2021-09-26 13:13] LABS: Protime INR 1.02
[2021-09-26] MEDS ORDERED: ASPIRIN 81 MG CHEWABLE TABLET ONE (13:17)
[2021-09-26] MEDS ORDERED: FAMOTIDINE 20 MG/2 ML VIAL IV ONE (13:17)
[2021-09-26 13:20] LABS: ALT/SGPT 27 U/L (12-78); AST/SGOT 16 U/L (15-37); Albumin 3.7 g/dL (3.4-5.0); Alkaline Phosphatase 67 U/L (45-117); BUN Blood Urea Nitrogen 20 mg/dL (7-18); Bicarbonate 27 mmol/L (21-32); Bilirubin Total 0.4 mg/dL (0.2-1.0); Glucose Level 126 mg/dL (74-106); Lipase 223 U/L (73-393); Magnesium 2.2 mg/dL (1.8-2.4); NT PRO-BNP 35 pg/mL (<125); Potassium 3.8 mmol/L (3.5-5.1); Protein, Total 6.9 g/dL (6.4-8.2); Sodium Level 139 mmol/L (136-145)
[2021-09-26 13:22] LABS: Bilirubin Direct < 0.1 mg/dL (0-0.2)
--- NOTE | 2021-09-26 13:34 | EDPHYS ---
Physician Documentation [facility] Name: Erika Ardon Age: 55 yrs Sex: Female : 1965 Arrival Date: 09/26/2021 Time: 12:33 Bed 11 Private MD: Pollo Cano ED Physician Darrel Love HPI: 09/26 13:18 This 55 yrs old Female presents to ER via Ambulatory with complaints of Chest bobo Pain. 13:18 The patient or guardian reports chest pain that is located primarily in the substernal bobo area. Onset: just prior to arrival, this morning. The pain radiates to Associated signs and symptoms: Pertinent positives: lightheadedness, shortness of breath. The chest pain is described as a heaviness. Duration: The patient or guardian reports a single episode, that is still ongoing, but improving, The patient or guardian reports multiple episodes, that have now resolved. Modifying factors: The symptoms are alleviated by nothing. the symptoms are aggravated by nothing. Severity of pain: At its worst the pain was moderate in the emergency department the pain has improved moderately. The patient has not experienced similar symptoms in the past. Historical: - Allergies: 12:47 PENICILLINS; aa5 - Home Meds: 12:47 Vyvanse oral [Active]; Paxil Oral [Active]; aa5 - PMHx: 12:47 Anxiety; ADHD; aa5 - Immunization history:: Client reports receiving the 2nd dose of the Covid vaccine. - Social history:: Smoking status: Patient denies any tobacco usage or history of. - Family history:: not pertinent. ROS: 13:18 Constitutional: Negative for fever, chills, and weight loss, Eyes: Negative for injury, bobo pain, redness, and discharge, ENT: Negative for injury, pain, and discharge, Neck: Negative for injury, pain, and swelling, Respiratory: Negative for shortness of breath, cough, wheezing, and pleuritic chest pain, Abdomen/GI: Negative for abdominal pain, nausea, vomiting, diarrhea, and constipation, Back: Negative for injury and pain, : Negative for injury, bleeding, discharge, and swelling, MS/Extremity: Negative for injury and deformity, Skin: Negative for injury, rash, and discoloration, Neuro: Negative for headache, weakness, numbness, tingling, and seizure. 13:18 Cardiovascular: Positive for chest pain, of the chest. Exam: 13:18 Constitutional: This is a well developed, well nourished patient who is awake, alert, bobo and in no acute distress. Head/Face: Normocephalic, atraumatic. Eyes: Pupils equal round and reactive to light, extra-ocular motions intact. Lids and lashes normal. Conjunctiva and sclera are non-icteric and not injected. Cornea within normal limits. Periorbital areas with no swelling, redness, or edema. ENT: Nares patent. No nasal discharge, no septal abnormalities noted. Tympanic membranes are normal and external auditory canals are clear. Oropharynx with no redness, swelling, or masses, exudates, or evidence of obstruction, uvula midline. Mucous membranes moist. Neck: Trachea midline, no thyromegaly or masses palpated, and no cervical lymphadenopathy. Supple, full range of motion without nuchal rigidity, or vertebral point tenderness. No Meningismus. Chest/axilla: Normal chest wall appearance and motion. Nontender with no deformity. No lesions are appreciated. Cardiovascular: Regular rate and rhythm with a normal S1 and S2. No gallops, murmurs, or rubs. Normal PMI, no JVD. No pulse deficits. Respiratory: Lungs have equal breath sounds bilaterally, clear to auscultation and percussion. No rales, rhonchi or wheezes noted. No increased work of breathing, no retractions or nasal flaring. Abdomen/GI: Soft, non-tender, with normal bowel sounds. No distension or tympany. No guarding or rebound. No evidence of tenderness throughout. Back: No spinal tenderness. No costovertebral tenderness. Full range of motion. Skin: Warm, dry with normal turgor. Normal color with no rashes, no lesions, and no evidence of cellulitis. MS/ Extremity: Pulses equal, no cyanosis. Neurovascular intact. Full, normal range of motion. Neuro: Awake and alert, GCS 15, oriented to person, place, time, and situation. Cranial nerves II-XII grossly intact. Motor strength 5/5 in all extremities. Sensory grossly intact. Cerebellar exam normal. Normal gait. Psych: Awake, alert, with orientation to person, place and time. Behavior, mood, and affect are within normal limits. 13:18 ECG was reviewed by the Attending Physician. Vital Signs: 12:40 BP 139 / 75; Pulse 73; Resp 16 S; Temp 98.8(TE); Pulse Ox 100% on R/A; Weight 79.38 kg aa5 (R); Height 5 ft. 5 in. (165.10 cm) (R); 14:00 BP 138 / 84; Pulse 72; Resp 18; Pulse Ox 100% on R/A; ss7 15:55 BP 119 / 95; Pulse 62; Resp 18; Pulse Ox 99% on R/A; ss7 17:27 BP 110 / 60; Pulse 59; Resp 18; Pulse Ox 98% on R/A; ss7 18:55 BP 121 / 68; Pulse 53; Resp 18; Pulse Ox 99% ; Pain 4/10; ss7 12:40 Body Mass Index 29.12 (79.38 kg, 165.10 cm) aa5 MDM: 12:41 Patient medically screened. bobo 13:22 Differential diagnosis: abnormal EKG, acute myocardial infarction, acute pericarditis, bobo chest wall pain, Cholelithiasis costochondritis, gastritis, herpes zoster, hiatal hernia, pancreatitis, peptic ulcer disease, pleurisy, pneumonia, pulmonary embolus, stable angina, unstable angina. HEART Score: History: Moderately Suspicious (1), ECG: Normal (0), Age: > 45 and < 65 years (1), Risk Factors: > or = 3 Risk factors for atherosclerotic disease (2), [Hypertension] [+ Family HX] [Obesity] Troponin: < or = 1 x Normal Limit (0). The patient was given aspirin in the Emergency Department. The patient's deep vein thrombosis risk score was calculated as follows: Total Score: 0. This patient was found to be at low risk for a deep vein thrombosis by using the Well's assessment criteria. The patient's pulmonary embolism risk score was calculated as follows: Total Score: 0-2 points. This patient was found to be at low risk for a pulmonary embolism by using the Well's assessment criteria. ALIX Risk Score: TOTAL SCORE = 0. Data reviewed: vital signs, nurses notes, lab test result(s), EKG, radiologic studies, plain films. Data interpreted: associate product integrity engineer: rate is 100 beats/min, rhythm is regular, Pulse oximetry: on room air is 100 %. Test interpretation: by ED physician or midlevel provider: ECG, plain radiologic studies. Counseling: I had a detailed discussion with the patient and/or guardian regarding: the historical points, exam findings, and any diagnostic results supporting the discharge/admit diagnosis, lab results, radiology results, the need for further work-up and treatment in the hospital. 09/26 12:44 Order name: Basic Metabolic Panel; Complete Time: 13:28 [facility] 09/26 12:44 Order name: CBC with Diff; Complete Time: 13:28 [facility] 09/26 12:44 Order name: LFT's; Complete Time: 13:28 [facility] 09/26 12:44 Order name: Magnesium; Complete Time: 13:28 [facility] 09/26 12:44 Order name: NT PRO-BNP; Complete Time: 13:28 [facility] 09/26 12:44 Order name: PT-INR; Complete Time: 13:28 [facility] 09/26 12:44 Order name: Troponin HS; Complete Time: 13:28 [facility] 09/26 12:44 Order name: Lipase; Complete Time: 13:28 [facility] 09/26 12:44 Order name: SARS-COV-2 RT PCR (Document "Date of Onset" if Symptomatic) [facility] 09/26 13:02 Order name: D-Dimer [facility] 09/26 13:46 Order name: Ptt, Activated ss7 09/26 14:11 Order name: D-Dimer [facility] 09/26 17:49 Order name: Ptt, Activated ss7 09/26 19:25 Order name: PTT, Activated Partial Thromb [facility] 09/26 12:44 Order name: XRAY Chest (1 view) [facility] 09/26 12:44 Order name: EKG; Complete Time: 12:45 [facility] 09/26 13:39 Order name: CONS Physician Consult [facility] 09/26 14:00 Order name: EKG; Complete Time: 14:00 [facility] 09/26 14:00 Order name: RAD [facility] 09/26 19:13 Order name: Diet Heart Healthy; Complete Time: 19:13 tw5 09/26 12:44 Order name: Cardiac monitoring; Complete Time: 12:58 [facility] 09/26 12:44 Order name: EKG - Nurse/Tech; Complete Time: 12:58 [facility] 09/26 12:44 Order name: IV Saline Lock; Complete Time: 12:58 [facility] 09/26 12:44 Order name: Labs collected and sent; Complete Time: 12:58 [facility] 09/26 12:44 Order name: O2 Per Protocol; Complete Time: 12:58 [facility] 09/26 12:44 Order name: O2 Sat Monitoring; Complete Time: 12:58 [facility] 09/26 14:00 Order name: EKG - Nurse/Tech; Complete Time: 14:32 [facility] 09/26 18:27 Order name: Labs - recollect needed: recollect blue top; Complete Time: 18:54 bd EC:18 Rate is 70 beats/min. Rhythm is regular. QRS [place] is Normal. RI interval is normal. QRS bobo interval is normal. QT interval is normal. No Q waves. T waves are Normal. No ST changes noted. Clinical impression: Normal ECG and No evidence of ischemia. Interpreted by me. Reviewed by me. Administered Medications: 13:20 Drug: Aspirin Chewable Tablet 162 mg Route: PO; ss7 14:19 Follow up: Response: No adverse reaction ss7 13:20 Drug: Pepcid (famotidine) 20 mg Route: IVP; Site: right antecubital; ss7 14:21 Follow up: Response: No adverse reaction ss7 13:24 CANCELLED (Duplicate Order): Lovenox (enoxaparin) 1 mg/kg Sub-Q once bobo 13:48 Drug: Heparin (MS-Bolus No thrombolytic) - HEParin 60 units/kg {Co-Signature: ab2 ss7 (Jesús Torres).} Route: IVP; Site: right antecubital; 14:20 Follow up: Response: No adverse reaction ss7 13:50 Drug: Heparin (MS Drip) 12 units/kg/hr - (HEParin 71821 units, D5W 500 ml) ss7 {Co-Signature: lr4 (Luisa Montero RN).} Route: IV; Rate: calculated rate; Site: right antecubital; 13:54 Drug: Lopressor (metoprolol TARTRATE)) 25 mg Route: PO; ss7 14:20 Follow up: Response: No adverse reaction ss7 13:54 Drug: PlaVIX (clopidogrel) 300 mg Route: PO; ss7 14:20 Follow up: Response: No adverse reaction ss7 14:01 Drug: Lipitor (atorvastatin) 20 mg Route: PO; ss7 14:20 Follow up: Response: No adverse reaction ss7 14:15 Drug: morphine 2 mg Route: IVP; Site: right hand; ss7 14:20 Follow up: Response: Pain is decreased ss7 14:15 Drug: Zofran (Ondansetron) 4 mg Route: IVP; Site: right hand; ss7 14:20 Follow up: Response: No adverse reaction ss7 19:07 Drug: morphine 2 mg Route: IVP; Site: right antecubital; ss7 19:32 Follow up: Response: Pain is decreased ss7 Disposition Summary: 09/26/21 13:33 Hospitalization Ordered Hospitalization Status: Inpatient Admission bobo Provider: Pollo Cano cha Condition: Fair bobo Problem: new bobo Symptoms: have improved bobo Bed/Room Type: Standard bobo Location: Telemetry/MedSurg (observation)(09/26/21 16:44) bd Room Assignment: [facility](09/26/21 19:12) eb1 Diagnosis - Angina pectoris, unspecified bobo - Non ST elevation MS bobo Forms: - Medication Reconciliation Form bobo - SBAR form bobo Signatures: Dispatcher [employer] EDMS Justa Gee Corey, MD MD cha Calderon, Audri, RN RN aa5 Zamzam Ortega RN RN eb1 Areli Luis RN RN ss7 Jesús Torres ab2 Luisa Montero RN lr4 Corrections: (The following items were deleted from the chart) 13:24 13:18 Lovenox (enoxaparin) 1 mg/kg Sub-Q once ordered. bobo bobo 16:40 13:33 Intensive Care Unit bobo bobo 16:40 13:33 bobo bobo 16:44 16:40 Telemetry/MedSurg (Inpatient) bobo bd 16:44 16:40 bobo bd 19:12 16:44 bd eb1
--- NOTE | 2021-09-26 13:34 | ER ---
Nurse's Notes [facility] Name: Erika Ardon Age: 55 yrs Sex: Female : 1965 Arrival Date: 09/26/2021 Time: 12:33 Bed 11 Private MD: Pollo Cano Diagnosis: Angina pectoris, unspecified;Non ST elevation NE Presentation: 09/26 12:40 Chief complaint: Patient states: chest pain that began 0700 today. Pt reports slight aa5 nausea. Denies SOB, denies vomiting. 12:40 Coronavirus screen: At this time, the client does not indicate any symptoms associated aa5 with coronavirus-19. Ebola Screen: No symptoms or risks identified at this time. Initial Sepsis Screen: Does the patient meet any 2 criteria? No. Patient's initial sepsis screen is negative. Does the patient have a suspected source of infection? No. Patient's initial sepsis screen is negative. Risk Assessment: Do you want to hurt yourself or someone else? Patient reports no desire to harm self or others. Onset of symptoms was September 26, 2021. 12:40 Acuity: MARITA 3 aa5 12:40 Method Of Arrival: Ambulatory aa5 Triage Assessment: 13:23 General: Appears in no apparent distress. Behavior is calm, cooperative, appropriate ss7 for age. Pain: Complains of pain in chest Pain does not radiate. Pain currently is 6 out of 10 on a pain scale. EENT: No deficits noted. Neuro: No deficits noted. Cardiovascular: Reports chest pain, Heart tones S1 S2 Rhythm is sinus rhythm. Respiratory: Breath sounds are clear bilaterally. GI: Bowel sounds present X 4 quads. Reports nausea. : No deficits noted. Derm: No deficits noted. Musculoskeletal: No deficits noted. Historical: - Allergies: 12:47 PENICILLINS; aa5 - Home Meds: 12:47 Vyvanse oral [Active]; Paxil Oral [Active]; aa5 - PMHx: 12:47 Anxiety; ADHD; aa5 - Immunization history:: Client reports receiving the 2nd dose of the Covid vaccine. - Social history:: Smoking status: Patient denies any tobacco usage or history of. - Family history:: not pertinent. Screenin:23 Abuse screen: Denies threats or abuse. Nutritional screening: No deficits noted. ss7 Tuberculosis screening: No symptoms or risk factors identified. Fall Risk IV access (20 points). Assessment: 14:39 General: Appears in no apparent distress. Behavior is calm, cooperative, appropriate ss7 for age. Pain: Complains of pain in chest Pain began suddenly. Neuro: No deficits noted. Cardiovascular: Reports chest pain, Heart tones S1 S2 Capillary refill < 3 seconds Patient's skin is warm and dry. Pulses are all present. Edema is absent. Rhythm is sinus rhythm. Respiratory: Breath sounds are clear bilaterally. GI: No deficits noted. Reports nausea. : No deficits noted. EENT: No deficits noted. Derm: No deficits noted. Musculoskeletal: No deficits noted. 15:25 Reassessment: Patient appears in no apparent distress at this time. No changes from ss7 previously documented assessment. Patient and/or family updated on plan of care and expected duration. Pain level reassessed. 16:20 Reassessment: Patient appears in no apparent distress at this time. Patient is alert, ss7 oriented x 3, equal unlabored respirations, skin warm/dry/pink. Cardiology at bedside. . 17:26 Reassessment: Patient appears in no apparent distress at this time. Patient and/or ss7 family updated on plan of care and expected duration. Pain level reassessed. Patient denies pain at this time. Informed dinner tray has been ordered per clinical secretary. Also that we will draw labs at 1750. Pt vu and expresses no needs at this time. SS. 18:30 Reassessment: recollect blue top. sent.. ss7 18:53 Reassessment: Patient appears in no apparent distress at this time. Patient and/or ss7 family updated on plan of care and expected duration. Pain level reassessed. States mild chest pain and requests 2nd dose of morphine that has been ordered. Will also check on dinner tray ordered again. SS. 19:21 Reassessment: lab alert received for ptt of 250.3; per weight based iv heparin 7 protocol. 0 rebolus; stop infusion for 60 mins then decrease 200units/hr(4ml/hr) and recheck ptt in 4 hours. . 19:26 Reassessment: Heparin drip stopped at 1925. May start back at 2024. Madan, RN notified of 7 changes and protocol to be transported with patient. . 19:31 General: Spoke to Elliott the food broker, he is making her a dinner tray at this time. tw5 . Vital Signs: 12:40 BP 139 / 75; Pulse 73; Resp 16 S; Temp 98.8(TE); Pulse Ox 100% on R/A; Weight 79.38 kg aa5 (R); Height 5 ft. 5 in. (165.10 cm) (R); 14:00 BP 138 / 84; Pulse 72; Resp 18; Pulse Ox 100% on R/A; ss7 15:55 BP 119 / 95; Pulse 62; Resp 18; Pulse Ox 99% on R/A; ss7 17:27 BP 110 / 60; Pulse 59; Resp 18; Pulse Ox 98% on R/A; ss7 18:55 BP 121 / 68; Pulse 53; Resp 18; Pulse Ox 99% ; Pain 4/10; ss7 12:40 Body Mass Index 29.12 (79.38 kg, 165.10 cm) aa5 ED Course: 12:33 Patient arrived in ED. am2 12:33 Pollo Cano MD is Private Physician. am2 12:40 Arm band placed on Patient placed in an exam room, on a stretcher. aa5 12:41 Darrel Love MD is Attending Physician. bobo 12:47 Triage completed. aa5 12:53 rAeli Luis, GUILHERME is Primary Nurse. ss7 12:58 Lipase Sent. ss7 12:58 Basic Metabolic Panel Sent. ss7 12:58 CBC with Diff Sent. ss7 12:58 LFT's Sent. ss7 12:58 Magnesium Sent. ss7 12:58 NT PRO-BNP Sent. ss7 12:58 PT-INR Sent. ss7 12:59 Troponin HS Sent. ss7 13:09 D-Dimer Sent. ss7 13:09 SARS-COV-2 RT PCR (Document "Date of Onset" if Symptomatic) Sent. ss7 13:09 Lipase Sent. ss7 13:09 Troponin HS Sent. ss7 13:09 PT-INR Sent. ss7 13:09 NT PRO-BNP Sent. ss7 13:09 Magnesium Sent. ss7 13:09 LFT's Sent. ss7 13:09 Basic Metabolic Panel Sent. ss7 13:23 Patient has correct armband on for positive identification. Placed in gown. Bed in low ss7 position. Call light in reach. Adult w/ patient. manager monitoring on. Pulse ox on. NIBP on. 13:23 No provider procedures requiring assistance completed. Inserted saline lock: 20 gauge ss7 in right antecubital area, using aseptic technique. Patient maintains SpO2 saturation greater than 95% on room air. 13:33 Pollo Cano MD is Hospitalizing Provider. bobo 13:54 Ptt, Activated Sent. ss7 18:09 Ptt, Activated Sent. ss7 19:32 Patient admitted, IV remains in place. ss7 Administered Medications: 13:20 Drug: Aspirin Chewable Tablet 162 mg Route: PO; ss7 14:19 Follow up: Response: No adverse reaction ss7 13:20 Drug: Pepcid (famotidine) 20 mg Route: IVP; Site: right antecubital; ss7 14:21 Follow up: Response: No adverse reaction ss7 13:24 CANCELLED (Duplicate Order): Lovenox (enoxaparin) 1 mg/kg Sub-Q once bobo 13:48 Drug: Heparin (NE-Bolus No thrombolytic) - HEParin 60 units/kg {Co-Signature: ab2 ss7 (Jesús Torres).} Route: IVP; Site: right antecubital; 14:20 Follow up: Response: No adverse reaction ss7 13:50 Drug: Heparin (NE Drip) 12 units/kg/hr - (HEParin 36613 units, D5W 500 ml) ss7 {Co-Signature: lr4 (Luisa Montero RN).} Route: IV; Rate: calculated rate; Site: right antecubital; 13:54 Drug: Lopressor (metoprolol TARTRATE)) 25 mg Route: PO; ss7 14:20 Follow up: Response: No adverse reaction ss7 13:54 Drug: PlaVIX (clopidogrel) 300 mg Route: PO; ss7 14:20 Follow up: Response: No adverse reaction ss7 14:01 Drug: Lipitor (atorvastatin) 20 mg Route: PO; ss7 14:20 Follow up: Response: No adverse reaction ss7 14:15 Drug: morphine 2 mg Route: IVP; Site: right hand; ss7 14:20 Follow up: Response: Pain is decreased ss7 14:15 Drug: Zofran (Ondansetron) 4 mg Route: IVP; Site: right hand; ss7 14:20 Follow up: Response: No adverse reaction ss7 19:07 Drug: morphine 2 mg Route: IVP; Site: right antecubital; 7 19:32 Follow up: Response: Pain is decreased ss7 Outcome: 13:33 Decision to Hospitalize by Provider. bobo 19:30 Admitted to Med/surg room 431, Report called to report called to [facility] 19:31 Condition: good [facility] 19:33 Patient left the ED. 7 Signatures: Darrel Love MD MD cha Calderon, Audri, RN RN aa5 Ara Leyva Tiffany tw5 Areli Luis RN RN ss7 Jesús Torres ab2 Luisa Montero RN lr4
[2021-09-26] MEDS ORDERED: HEPARIN 5000 UNIT/ML 1 ML VIAL ONE (13:37)
[2021-09-26] MEDS ORDERED: HEPARIN/D5W 25,000 UNIT/500 ML BAG IV ONE (13:38)
[2021-09-26] MEDS ORDERED: METOPROLOL TAR 25 MG TAB ONE (13:38)
[2021-09-26] MEDS ORDERED: CLOPIDOGREL 75 MG TABLET ONE (13:38)
[2021-09-26] MEDS ORDERED: ATORVASTATIN 20 MG TAB ONE (13:59)
--- NOTE | 2021-09-26 14:00 | RAD REPORT ---
EXAM DESCRIPTION: Yony Single View09/26/2021 1:49 pm CLINICAL HISTORY: Chest pain COMPARISON: none FINDINGS: The lungs appear clear of acute infiltrate. The heart is normal size IMPRESSION: No acute abnormalities displayed
[2021-09-26] MEDS ORDERED: MORPHINE 2 MG/ML SYR ONE ×2 (14:06→19:01)
[2021-09-26] MEDS ORDERED: ONDANSETRON 4 MG/2 ML VIAL ONE (14:06)
[2021-09-26] MEDS ORDERED: ONDANSETRON 4 MG/2 ML VIAL IV PRN (19:59)
[2021-09-26] MEDS: METOPROLOL TAR 25 MG TAB PO SCH (19:59)
[2021-09-26] MEDS ORDERED: HEPARIN/D5W 25,000 UNIT/500 ML BAG IV SCH (19:59)
[2021-09-26] MEDS ORDERED: ACETAMINOPHEN 500 MG TAB PO PRN (19:59)
[2021-09-26 20:53] VITALS: BMI 29.1
[2021-09-26] MEDS ORDERED: ATORVASTATIN 20 MG TAB PO SCH (21:00)
[2021-09-26] MEDS ORDERED: ALPRAZOLAM 0.5 MG TABLET PO PRN (21:54)
[2021-09-26] MEDS ORDERED: MORPHINE 2 MG/ML SYR IV PRN (21:54)
[2021-09-26] MEDS: FAMOTIDINE 20 MG/2 ML VIAL IV SCH (22:36)
[2021-09-27] MEDS: METOPROLOL TAR 25 MG TAB PO SCH (06:00)
[2021-09-27 06:08] LABS: Absolute Lymphocytes (CBC) 1.8 K/uL (0.7-4.9); Hematocrit 42.1 % (36.0-45.0); Lymphocytes % 34.3 % (15.3-44.8); MPV 9.3 fL (7.6-11.3); RBC Red Blood Cell Count 4.88 M/uL (3.86-4.86)
[2021-09-27] MEDS ORDERED: NA CHLORIDE 0.9% 1,000 ML ONE (06:20)
[2021-09-27 06:26] LABS: Potassium 3.9 mmol/L (3.5-5.1)
[2021-09-27] MEDS ORDERED: HEPA 1000U/500MLS 2,000 UNIT/1,000 ML BAG IV ONE (06:47)
[2021-09-27] MEDS ORDERED: LIDOCAINE 1% 20 ML MDV ONE ×2 (06:47→06:58)
[2021-09-27] MEDS ORDERED: VERAPAMIL HCL 10 MG/4 ML VIAL IV ONE (07:25)
[2021-09-27] MEDS ORDERED: MIDAZOLAM HCL 2 MG/2 ML INJ ONE (07:25)
[2021-09-27] MEDS ORDERED: NITROGLYCERIN 100 MCG/ML SYR (for cath lab use only) IV ONE (07:25)
[2021-09-27] MEDS ORDERED: HEPARIN 5000 UNIT/ML 1 ML VIAL ONE (07:25)
[2021-09-27] MEDS ORDERED: FENTANYL CITR 100 MCG/2 ML ONE (07:26)
[2021-09-27] MEDS ORDERED: NITROGLYCERIN/D5W 25 MG/250 ML BTL IV ONE (07:26)
[2021-09-27] MEDS ORDERED: ATROPINE SULF 1 MG/10 ML SYR IV ONE (07:26)
--- NOTE | 2021-09-27 08:33 | OP ---
Date of Procedure: 09/27/2021 Surgeon: GIANFRANCO HARRIS Procedure Performed: Selective coronary angiogram. Indication: Non ST elevation myocardial infarction. Access: Right radial artery 6-Maldivian closed with TR band. Complications: None. Bleeding: Less than 10 mL. Description Of Procedure: After risks, benefits, and alternatives were explained, patient agreed to proceed and signed informed consent. Patient was brought into the cardiac catheterization laboratory , prepped and draped in a sterile fashion. Then, I accessed right radial artery using pediatric micr opuncture kit and ultrasound guidance and placed a 6-Maldivian slender sheath and took 5-Maldivian [place] 4. 0 catheter into the aortic root, engaged left main and then right coronary artery with the same kyle ter and then removed the catheter and removed the sheath and placed TR band with good hemostasis. Findings: 1.Left main is short, large caliber, normal. 2.LAD; moderate-sized vessel, normal without any disease. All diagonal branches are normal. 3.Left circumflex is moderate to large vessel, dominant circulation and normal. 4.RCA is a small size vessel, nondominant and normal. Conclusion: Normal coronary arteries. Recommendation: Evaluate for other causes of chest pain, other than coronary artery disease. SR/MODL Voice ID: [id number] Report ID: [id number]
[2021-09-27] MEDS ORDERED: CLOPIDOGREL 75 MG TABLET PO SCH (09:00)
[2021-09-27] MEDS: FAMOTIDINE 20 MG/2 ML VIAL IV SCH (09:00)
[2021-09-27] MEDS ORDERED: ASPIRIN EC 81 MG TAB PO SCH (09:00)
[2021-09-27 10:57] VITALS: O2SAT 99
[2021-09-27] MEDS ORDERED: ALPRAZOLAM 0.5 MG TABLET PO PRN (11:16)
--- NOTE | 2021-09-27 11:30 | RAD REPORT ---
EXAM DESCRIPTION: US - Abdomen Exam Limited - 09/27/2021 11:23 am CLINICAL HISTORY: gallbladder Abdominal pain COMPARISON: No comparisons FINDINGS: The gallbladder demonstrates no gallstones. No pericholecystic fluid or gallbladder wall t hickening. The common bile duct is normal measuring 3 mm. The liver demonstrates no findings of intrahepatic biliary dilatation. IMPRESSION: Unremarkable examination.
[2021-09-27 13:04] VITALS: BP 113/50; TEMP 97.2
--- NOTE | 2021-09-27 16:48 | PN ---
Date of Progress Note: 09/27/2021 The patient feels much better today. Blood pressure is normal. She is not having any further episod es of pain. Her cardiac catheterization is basically normal. The other possibility is gallbladder d isease and an ultrasound has been done, awaiting results. If negative, she could be discharged. Add itional history and information, apparently, the patient has had some of these episodes to much lesse r extent over the past few months. She has attributed basically to stress including the chest pain a nd jaw pain. She also said that she did take the Vyvanse on the morning of the episode. However, yaneli mcfarland woke up feeling bad prior to the ingestion of that. But she states that her stress level has been increased as of late. HR/MODL Voice ID: [id number] Report ID: [id number]
--- NOTE | 2021-09-27 22:09 | HP ---
Date of Admission: 09/26/2021 Chief Complaint: Chest pain. History Of Present Illness: The patient states she went to bed last night and felt abnormal. So, th is morning, she woke up she had a rather severe headache associated with some nausea and central ches t pain. The pain radiated into her jaws and she was trying to take some deep breaths, so it was diff icult to say whether she was actually short of breath. 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 Past History: Patient has had no prior cardiac problems. She has a long history of slightly elevate d, hypercholesterolemia, which she has been trying to treat with diet and medication. She was seen b y a psychiatrist in [place] about a week or so and started on Vyvanse and, however, she did not take it the morning this happened. Family History: Mother, coronary artery disease in early age. Social History: Noncontributory. Nonsmoker, nondrinker. Physical Examination: General: Patient is an obviously uncomfortable middle-aged female. Vital Signs: Slightly elevated blood pressure, otherwise normal vital signs. Head and Neck: Normocephalic. Pupils equal, reactive to light and accommodation. Fundi negative. Trachea midline. Thyroid not palpable. ENT: Negative. Chest: Clear to P and A. Cardiovascular: PMI in midclavicular line. Heart: Sounds normal. Peripheral pulses present and equal bilaterally. Abdomen: No organomegaly. Bowel sounds normal. Extremities: Good tone and movement bilaterally. Reflexes physiologic. RECTAL: Deferred. PELVIC: Deferred. Impression: Chest pain, possible cardiac etiology. Plan: Patient will be admitted. Depending on the results of the rapid troponin which in fact came b ack elevated, she would be seen by Cardiology and probable catheterization performed. Should be fay tored in the meantime and treated as if it is cardiac with anticoagulation in the form of Plavix, asp irin, and heparin. HR/MODL Voice ID: [id number]
--- NOTE | 2021-09-28 07:12 | ECHO ---
HEIGHT: 5 ft 5 in WEIGHT: 175 lb 0 oz DATE OF STUDY: 09/27/[address]: Darrel Love MD 2-DIMENSIONAL: YES M.MODE: YES DOPPLER: YES COLOR FLOW: YES TDS: NO PORTABLE: NO DEFINITY: NO BUBBLE STUDY: NO DIAGNOSIS: NSTEMI CARDIAC HISTORY: CATHERIZATION:YES SURGERY: ON PROSTHETIC VALVE: NO PACEMAKER: NO MEASUREMENTS (cm) DIASTOLIC (NORMALS) SYSTOLIC (NORMALS) IVSd 1.0 (0.6-1.2) LA Diam (1.9-4.0) LVEF 59% LVIDd 4.2 (3.5-5.7) LVIDs 2.9 (2.0-3.5) %FS 31% LVPWd 0.9 (0.6-1.2) Ao Diam 2.8 (2.0-3.7) 2 DIMENSIONAL ASSESSMENT: RIGHT ATRIUM: NORMAL LEFT ATRIUM: NORMAL RIGHT VENTRICLE: NORMAL LEFT VENTRICLE: NORMAL TRICUSPID VALVE: NORMAL MITRAL VALVE: NORMAL PULMONIC VALVE: NORMAL AORTIC VALVE: NORMAL PERICARDIAL EFFUSION: NONE AORTIC ROOT: NORMAL LEFT VENTRICULAR WALL MOTION: NORMAL DOPPLER/COLOR FLOW: MILD TRICUSPID AND MITRAL REGURGITATION. COMMENTS: NORMAL LEFT VENTRICULAR EJECTION FRACTION 55-60%. NORMAL WALL MOTION. MILD TRICUSPID AND MITRAL REGURGITATION TECHNOLOGIST: Kris FERRARO
[2021-09-28] MEDS ORDERED: PARoxetine HCL 10 MG TAB PO SCH (09:00)
--- NOTE | 2021-10-02 09:49 | PN ---
The patient is now later in the day after being sedated with MS, she feels considerably better. Card iology agreed that the EKG was normal and was therefore scheduled for catheterization in the a.m. Vital signs are stable other than slightly elevated diastolic blood pressure. HR/MODL Voice ID: [id number] Report ID: [id number]
== END 2021-09-27 14:25 | disposition home or self-care (01) | DRG 287 ==
LOC: ER 12:32 → ERHOLD 13:36 → UNDOADMIN 13:36 → 2ND 13:36 → ERHOLD 19:23 → 4TH 19:23 → 2ND 09-27 10:15
PROVIDERS: ADMIT Family Medicine; ATTEND Family Medicine
PROC: B201YZZ Plain Radiography of Multiple Coronary Arteries using Other Contrast (ICD-10-PCS; principal; 2021-09-27)
DX: R07.9 Chest pain, unspecified (principal); F41.9 Anxiety disorder, unspecified; F90.9 Attention-deficit hyperactivity disorder, unspecified type; Z88.0 Allergy status to penicillin; Z20.822 Contact with and (suspected) exposure to COVID-19
CPT/HCPCS: 36415; 71045; 76705; 80048; 80061; 80076; 82150; 83690; 83735; 83880; 84484; 85025; 85379; 85610; 85730; 93005; 93306; 93454; 99285; C1893; J1644; J2250; J2270; J2405; J3010; J7030; U0003